=== PATIENT | female | born 2000 | race Caucasian/White ===

== ENCOUNTER 2023-11-30 19:48 | Emergency (ER) | payer OTHER, SELFPAY ==
[2023-11-30 19:51] VITALS: BP 120/90
--- NOTE | 2023-11-30 21:24 | ED.GENMED ---
History of Present Illness
General
Chief Complaint: Visual Problem
Source: patient and family (mother)
Exam Limitations: none
Time Seen by Provider: 11/30/23 20:33
Nursing documentation reviewed up to this point in time: agreed with
History of Present Illness
History of Present Illness:
The patient is a pleasant 23-year-old female who reports that she has been experiencing frequent headaches over the last 9 to 10 days. Patient describes the headaches as a throbbing sensation. The patient reports that over the last 2 to 3 days the
headaches have seemed to subside. However, the patient grew concerned because when she was driving this evening, she developed a loss of left peripheral vision from her left eye as well as a feeling of numbness of the left face and left arm.
Patient reports that the symptoms are now gone. When she was experiencing the onset of the symptoms, she reports that she developed a headache. Patient denies sore throat and rash. She denies fever. She reports that she was seen by her primary
care doctor for these headaches as well as an eye doctor. Patient denies weakness anywhere. She reports that currently she has no symptoms except for a very mild headache
Past History
Past History
ED Past Medical History: None
ED Past Surgical History: Tonsilectomy
Social History
Tobacco: Non-smoker
Alcohol: Other
Drug: None
Personal: Single
Living: with family
Employment: Other
Family History
Family History: Other (Patient denies a family history of stroke.)
Review of Systems
Review of Systems
Allergies reviewed?: Yes
All Other Systems: ROS reviewed and negative except as documented in HPI and ROS
Constitutional: Reports no symptoms
EENT: Reports other
Respiratory: Reports no symptoms
Cardiac: Reports no symptoms
ABD/GI: Reports no symptoms
: Reports no symptoms
Musculoskeletal: Reports no symptoms
Skin: Reports no symptoms
Neurological: Reports headache and numbness
Endocrine: Reports no symptoms
Hematologic/Lymphatic: Reports no symptoms
Psychiatric: Reports no symptoms
Phy Exam
Physical Exam
Physical Exam:
Physical Exam
General: no apparent distress, not acutely ill. Very well and comfortable appearing
Neck: supple. no meningeal signs. normal psoterior pharynx
Heart: s1/s2 regular rate and rhythm, no murmur. equal radial pulses.
Lungs: no acute respiratory distress. clear bilaterally
Abdomen: normal bowel sounds. not tender. no CVAT
Neuro: alert and orientedx3. no focal neurological deficits. Cranial nerves equal and symmetric bilaterally. 5 out of 5 strength in all extremities without drift. Normal [id number]. Steady gait. Equal sensation
bilaterally. Visual foster intact bilaterally. EOMI. PERRL.
Skin: no rash
Psychiatric: well kept. interactive and cooperative
Extremities: no edema. no calf tenderness. negative homans. good distal pulses
Course
Orders/Labs/Results
Orders:
Orders
11/30/23 21:19
CT Head W/o Iv Contrast Urgent
Comment:
Reason For Exam: headache, change vision
Ketorolac [Toradol] 30 mg IV NOW STA
Test Result ONCE
11/30/23 21:26
Complete Blood Count/With Diff Urgent
Comprehensive Metabolic Panel Urgent
Erythrocyte Sed Rate Urgent
HCG, Serum Qualitative Screen Urgent
11/30/23 21:26
11/30/23 21:26
Vital Signs
Initial and Last Documented VS:
Initial Vital Signs
Temp Pulse Resp BP Pulse Ox
97.8 F 82 22 120/90 100
11/30/23 19:51 11/30/23 19:51 11/30/23 19:51 11/30/23 19:51 11/30/23 19:51
Last Documented Vital Signs
Temp Pulse Resp BP Pulse Ox
97.8 F 80 16 127/84 98
11/30/23 19:51 11/30/23 22:28 11/30/23 22:28 11/30/23 22:28 11/30/23 22:28
MDM/Problems Addressed
Differential Diagnosis Includes:
Atypical migraine, intracranial hemorrhage, intracranial tumor
MDM/Problems Addressed:
Patient presents with subacute headaches and acute resolved vision change, as well as acute resolved numbness in face and arm
*Radiology
Radiology exam reviewed: radiology read reviewed
*Pulse Oximetry
Patient hypoxic: no
*EKG
Interpreted by ED Provider?: NA
*Osteopathic Medicine Teacher Interpretation
Rate: normal
Interpretation: normal
Rhythm: sinus
*Critical Care Note
Total Time (30-74mins, 75-104mins- exclusive of procedures): Not Applicable
Data Reviewed
Source: patient
Patient Management
Social determinants of health affecting care: Living situation and Strong social support
Escalation/DeEscalation of care consider admission/obs:
Patient remains asymptomatic for hours in the emergency department. Labs appear normal. CT shows no sign of obvious stroke or intracranial mass. Case discussed with Dr. Herrera who recommended that patient get a prompt MRI within the next 1 to 2
days. I discussed this with the patient and her mother. They report that their primary care doctor has already prescribed her to get an MRI and her insurance already approved it. Therefore, I feel confident that she will get an MRI within 48
hours. I did tell her that if for some reason she cannot get the MRI, that she must come back to the hospital to get the MRI. Patient understands this. She also understands if she has any further symptoms such as weakness, persistent numbness,
vision changes, difficulty speaking or swallowing that she needs to come back immediately. Explained to her that her symptoms could have been due to an atypical migraine or even a TIA. Patient understands this. Patient and mother would rather her
go home and be admitted because they have a prompt outpatient workup already in order. They report they also have an appointment to see a neurologist
ED Attending Note
-
Portions of this chart may have been created with voice recognition software.� Occasional wrong word or��sound alike� substitutions may have occurred due to the inherent limitations of voice recognition software.
Discharge Plan
Departure
Patient Disposition: Home (Routine Discharge)
Date of Disposition: 11/30/23
Time of Disposition: 23:03
Patient with high blood pressure during this ER visit?: No
Condition: Good
Covid-19: Not Applicable
Discharge Problem:
Acute headache
Instructions: Headache, Adult (DC)
Prescriptions:
No Action
norgestimate-ethinyl estradiol [Mup-[id number]] 1 EACH tablet
1 ea PO DAILY
doxycycline hyclate 100 MG capsule
100 mg PO Q12 Qty: 14 0RF
cephalexin 500 MG capsule
500 mg PO QID Qty: 28 0RF
cefpodoxime 200 mg tablet
200 mg PO BID 10 Days Qty: 20 0RF
Referrals:
Chandrika Rich PA-C [Family Provider] -
Activity Restrictions/Additional Instructions:
You must get an MRI of your brain within 48 hours. Please return immediately with any weakness, persistent vision changes, difficulty speaking or swallowing.
Interventions
Interventions:
*Risk Screen - Suicide Last Done: 11/30/23 19:51
*General Assessment Last Done: 11/30/23 21:30
*Neglect/Abuse Screening Last Done: 11/30/23 19:51
*ED COVID-19 Vaccine History Last Done: 11/30/23 21:30
*Nursing Disposition Last Done: 11/30/23 23:08
ED- Neurological Assessment Last Done: 11/30/23 21:30
ED-EENT Assessment Last Done: 11/30/23 21:30
Discharge Date and Time
Print Language: GUAMANIAN
[2023-11-30 21:30] VITALS: BMI 21.4
[2023-11-30 21:35] LABS: % Basophils 0.5 % (0-2); % Eosinophils 3.2 % (0-6); % Immature Granulocytes 0.3 % (0-0.5); % Lymphocytes 35.3 % (20.5-51.1); % Monocytes 7.7 % (1.7-9.3); Absolute Eosinophils 0.2 10^3/uL (0-0.7); Absolute Lymphocytes 2.6 10^3/uL (1.2-3.4); Absolute Monocytes 0.6 10^3/uL (0.1-0.6); Absolute Neutrophils 3.9 10^3/uL (1.4-6.5); Hematocrit 37.7 % (37.0-47.0); Hemoglobin 12.9 g/dL (12.0-16.0); Mean Corp Hgb Conc. 34.2 g/dL (33.0-37.0); Mean Corpuscular Hgb 28.3 pg (27.0-31.0); Mean Corpuscular Volume 82.7 fL (81.0-99.0); Mean Platelet Volume 10.1 fL (7.4-10.4); Nucleated Red Blood Cells % 0 %; Platelet Count 321 10^3/uL (130-400); Red Blood Cell Count 4.56 10^6/uL (4.20-5.40); Red Cell Dist. Width 12.8 % (11.5-14.5); White Blood Cell Count 7.4 10^3/uL (4.8-10.8)
[2023-11-30 21:42] LABS: Erythrocyte Sed Rate 8 mm/hour (0-20)
[2023-11-30 21:46] LABS: HCG, Serum Qualitative Screen Negative
[2023-11-30 21:50] LABS: ALT (SGPT) 17 U/L (0-35); AST (SGOT) 23 U/L (14-36); Albumin 4.4 g/dl (3.5-5.0); Alkaline Phosphatase 67 U/L (38-126); Blood Urea Nitrogen 11 mg/dl (7-17); Calcium 9.6 mg/dl (8.4-10.2); Carbon Dioxide 24 mmol/L (22-30); Chloride 103 mmol/L (98-107); Estimated Creatinine Clearance 122 ml/min; Glucose 83 mg/dl (70-99); Potassium 4.2 mmol/L (3.5-5.1); Sodium 139 mmol/L (135-145); Total Bilirubin 0.7 mg/dl (0.2-1.3); Total Protein 6.9 g/dl (6.3-8.2); eGFR > 60.00
[2023-11-30 22:28] VITALS: BP 127/84
== END 2023-11-30 23:08 | disposition home or self-care (01) ==
LOC: EMR 19:48
PROVIDERS: EMERGENCY PHYSICIAN Emergency Medicine; FAMILY PHYSICIAN Physician Assistant Medical
DX: R51.9 Headache, unspecified (principal); R20.0 Anesthesia of skin
CPT/HCPCS: 99284; 70450; 80053; 84703; 85025; 85652

== ENCOUNTER → 2023-12-06 09:07 | Outpatient (REF) | payer OTHER, SELFPAY | LOC: PAVMRI 09:07 | PROVIDERS: ATTENDING PHYSICIAN Physician Assistant Medical | DX: G44.019 Episodic cluster headache, not intractable (principal) | CPT/HCPCS: 70553; A9575 ==